=== PATIENT | male | born 1975 | race Caucasian/White ===

== ENCOUNTER 2018-04-29 14:43 | Emergency (ER) | payer MEDICAID ==
[~2018-04-29] VITALS: Ht 180.3 cm; Wt 79.0 kg
[~2018-04-29 14:43] MED LIST: NO HOME MEDS
[2018-04-29 14:46] VITALS: BP 130/86
[2018-04-29] MEDS ORDERED: ketorolac tromethamine 15mg/ml inj. IM ONE (15:50)
[2018-04-29] MEDS ORDERED: NAPR-56 PO (16:08)
== END 2018-04-29 16:20 | disposition home or self-care (01) ==
LOC: ER 14:43
DX: S60.211A Contusion of right wrist, initial encounter (principal); M25.511 Pain in right shoulder; Z90.49 Acquired absence of other specified parts of digestive tract; Z98.890 Other specified postprocedural states; Z88.0 Allergy status to penicillin; W01.0XXA Fall on same level from slipping, tripping and stumbling without subsequent striking against object, initial encounter; Y93.89 Activity, other specified; Y92.89 Other specified places as the place of occurrence of the external cause; Y99.9 Unspecified external cause status
CPT/HCPCS: 29125; 73030; 73110; 96372; 99284; A4565; A6449; J1885

== ENCOUNTER 2018-09-15 07:45 | Emergency (ER) | payer MEDICAID ==
[~2018-09-15] VITALS: Ht 180.3 cm; Wt 90.0 kg
[2018-09-15 08:33] LABS: BASOPHILS % (AUTO) 0.3 % (0-1); EOSINOPHILS # (AUTO) 0.9 X10'3 (0-0.9); EOSINOPHILS % (AUTO) 6.8 % (0-6); HEMATOCRIT 46.5 % (42.0-52.0); HEMOGLOBIN 15.3 g/dl (14.0-17.9); LYMPHOCYTES # (AUTO) 1.5 X10'3 (1.1-4.8); LYMPHOCYTES % (AUTO) 11.1 % (21-51); MEAN CORPUSCULAR HEMOGLOBIN 27.4 PG (27.0-31.0); MEAN CORPUSCULAR HGB CONC 32.9 % (33.0-36.5); MEAN CORPUSCULAR VOLUME 83.2 FL (78-98); MEAN PLATELET VOLUME 9.3 FL (7.4-10.4); MONOCYTES # (AUTO) 0.7 X10'3 (0-0.9); MONOCYTES % (AUTO) 5.2 % (2-12); NEUTROPHILS # (AUTO) 10.5 X10'3 (1.8-7.7); NEUTROPHILS % (AUTO) 76.6 % (42-75); PLATELET COUNT 290 X10'3 (140-440); RED BLOOD COUNT 5.59 X10'6 (4.70-6.10); RED CELL DISTRIBUTION WIDTH 12.9 % (11.5-14.5); WHITE BLOOD COUNT 13.6 X10'3 (4.5-11.0)
[2018-09-15 08:46] LABS: INR 0.9 INR; PARTIAL THROMBOPLASTIN TIME 27 SECONDS (22-32); PROTHROMBIN TIME 9.5 SECONDS (9.0-12.0)
[2018-09-15 08:52] LABS: ALANINE AMINOTRANSFERASE 79 U/L (12-78); ALBUMIN 3.7 G/DL (3.4-5.0); ALBUMIN/GLOBULIN RATIO 0.8 (1.1-1.5); ALKALINE PHOSPHATASE 118 IU/L (46-116); ANION GAP 12 (8-16); ASPARTATE AMINO TRANSFERASE 21 U/L (10-37); BILIRUBIN,TOTAL 0.4 MG/DL (0.1-1.0); BLOOD UREA NITROGEN 16 MG/DL (7-18); BUN/CREATININE RATIO 21.6 (5.4-32.0); CHLORIDE 99 MMOL/L (99-107); CREATININE 0.74 MG/DL (0.60-1.10); GLUCOSE 288 MG/DL (70-104); SODIUM 135 MMOL/L (135-145); TOTAL CARBON DIOXIDE 23.7 MMOL/L (24-32); TOTAL PROTEIN 8.2 G/DL (6.4-8.2); eGFR > 90 ML/MIN
[2018-09-15] MEDS: MESSAGE TO NURSING PO SCH ×3 (09:00→13:08)
[2018-09-15] MEDS ORDERED: iohexol 300mg/ml 100ml inj. ONE (09:03)
[2018-09-15] MEDS ORDERED: normal saline 1000ML IV soln IV ONE (10:10)
[2018-09-15] MEDS ORDERED: GLIP10TA11 PO (10:23)
[2018-09-15] MEDS ORDERED: METF-438 PO (10:23)
[2018-09-15] MEDS ORDERED: OMEP-50 PO (10:23)
[2018-09-15] MEDS ORDERED: NAPR-996 PO (10:23)
[2018-09-15] MEDS ORDERED: ATOR40TA72 PO (10:23)
[2018-09-15] MEDS ORDERED: CHOL10002 PO (10:23)
[2018-09-15] MEDS ORDERED: levoFLOXACIN-Levaquin 750MG/D5 150 ML IV ONE (10:35)
[2018-09-15] MEDS ORDERED: azithromycin/NS 500mg/250ml 250 ML IV ONE (10:35)
[2018-09-15] MEDS ORDERED: BENZ-16 PO (11:14)
[2018-09-15] MEDS ORDERED: LEVO750T21 PO (11:14)
[2018-09-15 13:31] VITALS: BP 120/71
== END 2018-09-15 13:55 | disposition home or self-care (01) ==
LOC: ER 07:45
DX: J18.1 Lobar pneumonia, unspecified organism (principal); E11.9 Type 2 diabetes mellitus without complications; Z87.891 Personal history of nicotine dependence; Z90.49 Acquired absence of other specified parts of digestive tract; Z98.890 Other specified postprocedural states; Z88.0 Allergy status to penicillin; Z79.899 Other long term (current) drug therapy
CPT/HCPCS: 36415; 71045; 71260; 80053; 83605; 84484; 85025; 85610; 85730; 87040; 93005; 96365; 96366; 96368; 99284; J0456; J1956; J7030; Q9967

== ENCOUNTER 2019-04-23 06:14 | Emergency (ER) | payer MEDICAID ==
[~2019-04-23] VITALS: Ht 180.3 cm; Wt 46.0 kg
[~2019-04-23 06:14] MED LIST changes: +ATOR40TA72 PO; +CHOL10002 PO; +GLIP10TA11 PO; +METF-438 PO; +NAPR-996 PO; -NO HOME MEDS; +OMEP-50 PO
[2019-04-23] MEDS ORDERED: normal saline 1000ml 1,000 ML IV ONE (07:10)
[2019-04-23] MEDS ORDERED: metoclopramide 5 mg/ml inj IV ONE (07:10)
[2019-04-23] MEDS ORDERED: mag hydrox/Alum hydrox/simeth 30ml oral suspension PO ONE (07:10)
[2019-04-23 07:23] LABS: BASOPHILS # (AUTO) 0.1 X10'3 (0-0.2); BASOPHILS % (AUTO) 0.9 % (0-1); EOSINOPHILS # (AUTO) 0.1 X10'3 (0-0.9); EOSINOPHILS % (AUTO) 1.2 % (0-6); HEMATOCRIT 43.7 % (42.0-52.0); LYMPHOCYTES # (AUTO) 1.7 X10'3 (1.1-4.8); LYMPHOCYTES % (AUTO) 14.8 % (21-51); MEAN CORPUSCULAR HEMOGLOBIN 28.1 PG (27.0-31.0); MEAN CORPUSCULAR HGB CONC 34.3 g/dL (33.0-36.5); MEAN CORPUSCULAR VOLUME 81.8 FL (78-98); MEAN PLATELET VOLUME 8.7 FL (7.4-10.4); MONOCYTES # (AUTO) 0.7 X10'3 (0-0.9); MONOCYTES % (AUTO) 5.6 % (2-12); NEUTROPHILS % (AUTO) 77.5 % (42-75); PLATELET COUNT 274 X10'3 (140-440); RED BLOOD COUNT 5.34 X10'6 (4.70-6.10); RED CELL DISTRIBUTION WIDTH 13.8 % (11.5-14.5); WHITE BLOOD COUNT 11.6 X10'3 (4.5-11.0)
[2019-04-23 07:38] LABS: ALANINE AMINOTRANSFERASE 74 U/L (12-78); ALBUMIN 3.4 G/DL (3.4-5.0); ALBUMIN/GLOBULIN RATIO 0.7 (1.1-1.5); ALKALINE PHOSPHATASE 77 IU/L (46-116); ANION GAP 9 (8-16); ASPARTATE AMINO TRANSFERASE 35 U/L (10-37); BILIRUBIN,TOTAL 0.4 MG/DL (0.1-1.0); BLOOD UREA NITROGEN 17 MG/DL (7-18); BUN/CREATININE RATIO 19.1 (5.4-32.0); CALCIUM 9.2 MG/DL (8.5-10.1); CHLORIDE 105 MMOL/L (99-107); CREATININE 0.89 MG/DL (0.60-1.10); GLUCOSE 212 MG/DL (70-104); POTASSIUM 3.8 MMOL/L (3.5-5.1); SODIUM 142 MMOL/L (135-145); TOTAL CARBON DIOXIDE 28.5 MMOL/L (24-32); eGFR > 90 ML/MIN
[2019-04-23 07:40] LABS: PARTIAL THROMBOPLASTIN TIME 27 SECONDS (22-32)
[2019-04-23] MEDS ORDERED: iohexol 350MG/ML 100ml bottle IV ONE (07:44)
[2019-04-23] MEDS ORDERED: levoFLOXACIN-Levaquin 750MG/D5 150 ML IV STA (08:57)
[2019-04-23] MEDS ORDERED: LEVO750T21 PO (09:13)
[2019-04-23 10:29] VITALS: BP 109/86
== END 2019-04-23 10:34 | disposition home or self-care (01) ==
LOC: ER 06:15
DX: J18.9 Pneumonia, unspecified organism (principal); R11.2 Nausea with vomiting, unspecified; E11.9 Type 2 diabetes mellitus without complications; F32.9 Major depressive disorder, single episode, unspecified; Z90.49 Acquired absence of other specified parts of digestive tract; Z98.890 Other specified postprocedural states; Z88.0 Allergy status to penicillin; Z79.899 Other long term (current) drug therapy
CPT/HCPCS: 36415; 71046; 71275; 80053; 83880; 84484; 85025; 85610; 85730; 93005; 96361; 96365; 96375; 99284; J1956; J2765; J7030; Q9967

== ENCOUNTER 2019-05-08 10:37 | Emergency (ER) | payer MEDICAID ==
[~2019-05-08] VITALS: Ht 180.3 cm; Wt 86.4 kg
[2019-05-08 11:22] LABS: BASOPHILS # (AUTO) 0.1 X10'3 (0-0.2); BASOPHILS % (AUTO) 1.2 % (0-1); EOSINOPHILS # (AUTO) 0.3 X10'3 (0-0.9); EOSINOPHILS % (AUTO) 3.9 % (0-6); HEMATOCRIT 42.3 % (42.0-52.0); HEMOGLOBIN 14.6 g/dl (14.0-17.9); LYMPHOCYTES # (AUTO) 0.9 X10'3 (1.1-4.8); LYMPHOCYTES % (AUTO) 13.6 % (21-51); MEAN CORPUSCULAR HEMOGLOBIN 28.6 PG (27.0-31.0); MEAN CORPUSCULAR HGB CONC 34.5 g/dL (33.0-36.5); MEAN CORPUSCULAR VOLUME 82.8 FL (78-98); MONOCYTES # (AUTO) 0.5 X10'3 (0-0.9); MONOCYTES % (AUTO) 7.1 % (2-12); NEUTROPHILS # (AUTO) 4.9 X10'3 (1.8-7.7); NEUTROPHILS % (AUTO) 74.2 % (42-75); PLATELET COUNT 239 X10'3 (140-440); RED BLOOD COUNT 5.11 X10'6 (4.70-6.10); RED CELL DISTRIBUTION WIDTH 13.7 % (11.5-14.5); WHITE BLOOD COUNT 6.6 X10'3 (4.5-11.0)
[2019-05-08 11:34] LABS: PARTIAL THROMBOPLASTIN TIME 30 SECONDS (22-32)
[2019-05-08 11:38] LABS: ALANINE AMINOTRANSFERASE 67 U/L (12-78); ALBUMIN 3.4 G/DL (3.4-5.0); ALBUMIN/GLOBULIN RATIO 0.8 (1.1-1.5); ALKALINE PHOSPHATASE 73 IU/L (46-116); ANION GAP 12 (8-16); ASPARTATE AMINO TRANSFERASE 28 U/L (10-37); BILIRUBIN,TOTAL 0.6 MG/DL (0.1-1.0); BLOOD UREA NITROGEN 9 MG/DL (7-18); BUN/CREATININE RATIO 10.7 (5.4-32.0); CALCIUM 8.6 MG/DL (8.5-10.1); CHLORIDE 104 MMOL/L (99-107); CREATININE 0.84 MG/DL (0.60-1.10); GLUCOSE 197 MG/DL (70-104); POTASSIUM 3.9 MMOL/L (3.5-5.1); SODIUM 139 MMOL/L (135-145); TOTAL CARBON DIOXIDE 22.8 MMOL/L (24-32); TOTAL PROTEIN 7.9 G/DL (6.4-8.2); eGFR > 90 ML/MIN
[2019-05-08 11:44] LABS: CLARITY,URINE CLEAR (Clear); COLOR,URINE YELLOW (Yellow); GLUCOSE, URINE >=1000 mg/dl (Neg); KETONES,URINE TRACE mg/dl (Neg); LEUKOCYTE ESTERASE ,URINE NEGATIVE (Neg); NITRITES, URINE NEGATIVE (Neg); OCCULT BLOOD,URINE NEGATIVE (Neg); PROTEIN,URINE 30 mg/dl (Neg); UA COLLECTION TYPE NON-SPECIFIED; UROBILINOGEN,URINE 0.2 E.U/dL (0.2-1.0)
[2019-05-08 11:50] LABS: BACTERIA,URINE FEW /HPF (Neg); HYALINE CASTS 0-3 /LPF (NEGATIVE); MUCUS STRANDS FEW /LPF (Neg); RBC,URINE 0-2 /HPF (0-2); SQUAMOUS EPITHELIAL CELL,UR FEW /LPF (FEW)
[2019-05-08] MEDS ORDERED: morphine 4 MG/ML inj SYRINge IV PRN (12:05)
[2019-05-08] MEDS ORDERED: ondansetron/PF 4mg/2ml inj IV ONE (12:05)
[2019-05-08] MEDS ORDERED: dexamethasone sod phosphate 10mg/ml inj IV STA (12:05)
--- NOTE | 2019-05-08 12:15 | NUR ---
R/o strep swab obtained by MD/RN collected, sent to lab.
--- NOTE | 2019-05-08 12:42 | NUR ---
NOTIFIED DR GUSMAN PT HR 109, LA 2.2. NEW ORDER FOR 2L BOLUS NS.
[2019-05-08] MEDS ORDERED: normal saline 1000ML IV soln IVB ONE (12:45)
[2019-05-08] MEDS ORDERED: NAPR-56 PO (13:33)
[2019-05-08] MEDS ORDERED: DIPH-518 PO (13:33)
[2019-05-08] MEDS ORDERED: AZIT-63 PO (13:33)
[2019-05-08] MEDS ORDERED: azithromycin 250mg tablet PO ONE (13:35)
[2019-05-08 14:15] VITALS: BP 121/70
== END 2019-05-08 14:18 | disposition home or self-care (01) ==
LOC: ER 10:37
DX: J02.0 Streptococcal pharyngitis (principal); E11.9 Type 2 diabetes mellitus without complications; R11.10 Vomiting, unspecified; Z87.891 Personal history of nicotine dependence; Z98.890 Other specified postprocedural states; Z90.49 Acquired absence of other specified parts of digestive tract; Z88.0 Allergy status to penicillin; Z79.899 Other long term (current) drug therapy
CPT/HCPCS: 36415; 71045; 80053; 81001; 83605; 84145; 85025; 85610; 85730; 87040; 87088; 87880; 96374; 96375; 99284; J1100; J2270; J2405; J7030; 96361

== ENCOUNTER 2020-07-29 20:19 | Emergency (ER) | payer MEDICAID ==
[~2020-07-29] VITALS: Ht 180.3 cm; Wt 100.0 kg
[~2020-07-29 20:19] MED LIST changes: +DIPH-518 PO
[2020-07-29 20:21] VITALS: BP 151/95
[2020-07-29] MEDS ORDERED: ibuprofen tablet 400 MG TABLET PO STA (20:26)
== END 2020-07-29 21:24 | disposition home or self-care (01) ==
LOC: ER 20:20
DX: S63.501A Unspecified sprain of right wrist, initial encounter (principal); E11.9 Type 2 diabetes mellitus without complications; F32.9 Major depressive disorder, single episode, unspecified; Z88.0 Allergy status to penicillin; Z79.899 Other long term (current) drug therapy; W18.30XA Fall on same level, unspecified, initial encounter; Y93.89 Activity, other specified; Y92.89 Other specified places as the place of occurrence of the external cause; Y99.8 Other external cause status
CPT/HCPCS: 29125; 73130; 99283; 99284

== ENCOUNTER 2020-12-12 18:52 | Emergency (ER) | payer MEDICAID ==
[~2020-12-12] VITALS: Ht 180.3 cm; Wt 95.5 kg
[2020-12-12] MEDS ORDERED: HYDROcodone/acetaminophen 5mg/325mg tablet PO ONE (20:55)
[2020-12-12] MEDS ORDERED: ketorolac tromethamine 15mg/ml inj. IM ONE (20:55)
[2020-12-12] MEDS ORDERED: IBUP-1984 PO (21:10)
[2020-12-12] MEDS ORDERED: HYDR-3965 PO (21:10)
[2020-12-12 21:19] VITALS: BP 136/86
== END 2020-12-12 21:21 | disposition home or self-care (01) ==
LOC: ER 18:53
DX: M25.532 Pain in left wrist (principal); E11.9 Type 2 diabetes mellitus without complications; F32.9 Major depressive disorder, single episode, unspecified; Z90.49 Acquired absence of other specified parts of digestive tract; Z88.0 Allergy status to penicillin; Z79.899 Other long term (current) drug therapy
CPT/HCPCS: 29260; 73110; 96372; 99283; J1885

== ENCOUNTER 2021-05-31 08:44 | Emergency (ER) | payer MEDICAID ==
[~2021-05-31] VITALS: Ht 180.3 cm; Wt 81.8 kg
[2021-05-31 09:01] VITALS: BP 129/90
[2021-05-31] MEDS ORDERED: ALBU8.5H17 IH (09:28)
== END 2021-05-31 09:43 | disposition home or self-care (01) ==
LOC: ER 08:45
DX: R05 Cough (principal); E11.9 Type 2 diabetes mellitus without complications; F32.9 Major depressive disorder, single episode, unspecified; Z87.01 Personal history of pneumonia (recurrent); Z90.89 Acquired absence of other organs; Z98.890 Other specified postprocedural states; Z88.0 Allergy status to penicillin; Z79.899 Other long term (current) drug therapy
CPT/HCPCS: 99283

== ENCOUNTER 2022-01-09 21:48 | Emergency (ER) | payer MEDICAID ==
[~2022-01-09] VITALS: Ht 180.3 cm; Wt 86.4 kg
[~2022-01-09 21:48] MED LIST changes: +ALBU8.5H17 IH; -OMEP-50 PO; +OMEP20CA16 PO
[2022-01-09] MEDS ORDERED: ketorolac trometh. 30mg/ml inj. IM ONE (23:10)
[2022-01-09] MEDS ORDERED: HYDROcodone/acetaminophen 10/325mg tab PO ONE (23:20)
--- NOTE | 2022-01-10 00:44 | NUR ---
Pt pink, alert, no acute/resp distress. Bed in lowest position, wheels locked, rails up, call ehr in reach.
[2022-01-10] MEDS ORDERED: HYDR-3965 PO (00:51)
--- NOTE | 2022-01-10 01:04 | NUR ---
Pt denies further questions re aci. + crutch training and knee immobiliser as evidenced by return demnstration.
[2022-01-10 01:05] VITALS: BP 118/68
== END 2022-01-10 01:07 | disposition home or self-care (01) ==
LOC: ER 21:49
DX: S80.911A Unspecified superficial injury of right knee, initial encounter (principal); M54.50 Low back pain, unspecified; E11.9 Type 2 diabetes mellitus without complications; Z87.01 Personal history of pneumonia (recurrent); Z88.0 Allergy status to penicillin; Z79.899 Other long term (current) drug therapy; W19.XXXA Unspecified fall, initial encounter; Y93.A1 Activity, exercise machines primarily for cardiorespiratory conditioning; Y92.009 Unspecified place in unspecified non-institutional (private) residence as the place of occurrence of the external cause; Y99.8 Other external cause status
CPT/HCPCS: 72131; 73564; 73610; 96372; 99284; J1885

== ENCOUNTER 2022-07-06 22:04 | Emergency (ER) | payer MEDICAID ==
[~2022-07-06] VITALS: Ht 180.3 cm; Wt 90.9 kg
[2022-07-06 22:26] LABS: BASOPHILS # (AUTO) 0.1 X10'3 (0-0.2); BASOPHILS % (AUTO) 1.2 % (0-1); EOSINOPHILS # (AUTO) 0.1 X10'3 (0-0.9); EOSINOPHILS % (AUTO) 1.7 % (0-6); HEMATOCRIT 41.3 % (42.0-52.0); HEMOGLOBIN 14.3 g/dl (14.0-17.9); LYMPHOCYTES # (AUTO) 2.5 X10'3 (1.1-4.8); LYMPHOCYTES % (AUTO) 34.7 % (21-51); MEAN CORPUSCULAR HEMOGLOBIN 27.7 PG (27.0-31.0); MEAN CORPUSCULAR HGB CONC 34.7 g/dL (33.0-36.5); MEAN CORPUSCULAR VOLUME 79.9 FL (78-98); MEAN PLATELET VOLUME 8.7 FL (7.4-10.4); MONOCYTES # (AUTO) 0.6 X10'3 (0-0.9); MONOCYTES % (AUTO) 8.4 % (2-12); NEUTROPHILS # (AUTO) 3.8 X10'3 (1.8-7.7); PLATELET COUNT 244 X10'3 (140-440); RED BLOOD COUNT 5.17 X10'6 (4.70-6.10); RED CELL DISTRIBUTION WIDTH 13.4 % (11.5-14.5); WHITE BLOOD COUNT 7.1 X10'3 (4.5-11.0)
[2022-07-06 22:43] LABS: ALANINE AMINOTRANSFERASE 52 U/L (12-78); ALBUMIN 3.6 G/DL (3.4-5.0); ALBUMIN/GLOBULIN RATIO 0.9 (1.1-1.5); ALKALINE PHOSPHATASE 85 IU/L (46-116); ANION GAP 9 (8-16); ASPARTATE AMINO TRANSFERASE 24 U/L (10-37); BILIRUBIN,TOTAL 0.4 MG/DL (0.1-1.0); BLOOD UREA NITROGEN 15 MG/DL (7-18); BUN/CREATININE RATIO 18.3 (5.4-32.0); CALCIUM 8.7 MG/DL (8.5-10.1); CHLORIDE 103 MMOL/L (99-107); CREATININE 0.82 MG/DL (0.60-1.10); GLUCOSE 318 MG/DL (70-104); LIPASE 81 U/L (73-393); POTASSIUM 3.4 MMOL/L (3.5-5.1); SODIUM 137 MMOL/L (135-145); TOTAL CARBON DIOXIDE 25.4 MMOL/L (24-32); TOTAL PROTEIN 7.4 G/DL (6.4-8.2); eGFR > 90 ML/MIN
[2022-07-06] MEDS ORDERED: ketorolac trometh. 30mg/ml inj. IV ONE (22:55)
[2022-07-06 23:28] LABS: CLARITY,URINE CLEAR (Clear); GLUCOSE, URINE >=1000 mg/dl (Neg); KETONES,URINE NEGATIVE (Neg); LEUKOCYTE ESTERASE ,URINE NEGATIVE (Neg); NITRITES, URINE NEGATIVE (Neg); OCCULT BLOOD,URINE NEGATIVE (Neg); PROTEIN,URINE NEGATIVE (Neg); UROBILINOGEN,URINE 0.2 E.U/dL (0.2-1.0)
[2022-07-06 23:33] LABS: COLOR,URINE STRAW (Yellow); UA COLLECTION TYPE CLN CATCH MIDSTREAM
[2022-07-06 23:34] LABS: BACTERIA,URINE NONE SEEN /HPF (Neg); RBC,URINE 0-2 /HPF (0-2); SQUAMOUS EPITHELIAL CELL,UR NONE SEEN /LPF (FEW); WBC,URINE 0-4 /HPF (0-4)
[2022-07-07 00:09] VITALS: BP 162/97
== END 2022-07-07 00:13 | disposition home or self-care (01) ==
LOC: ER 22:05
DX: R51.9 Headache, unspecified (principal); E11.9 Type 2 diabetes mellitus without complications; F32.9 Major depressive disorder, single episode, unspecified; I10 Essential (primary) hypertension; Z90.49 Acquired absence of other specified parts of digestive tract; Z88.0 Allergy status to penicillin; Z79.899 Other long term (current) drug therapy; Z79.84 Long term (current) use of oral hypoglycemic drugs
CPT/HCPCS: 36415; 70450; 80053; 81001; 83690; 85025; 96374; 99284; J1885

== ENCOUNTER 2023-06-15 08:51 | Emergency (ER) | payer MEDICAID ==
[~2023-06-15] VITALS: Ht 180.3 cm; Wt 90.0 kg
[2023-06-15 09:08] VITALS: BP 152/100; PULSE 84; RESP 18; O2SAT 97
[2023-06-15 09:41] LABS: BASOPHILS # (AUTO) 0.1 X10'3 (0-0.2); BASOPHILS % (AUTO) 0.9 % (0-1); EOSINOPHILS # (AUTO) 0.1 X10'3 (0-0.9); EOSINOPHILS % (AUTO) 1.5 % (0-6); HEMATOCRIT 43.2 % (42.0-52.0); HEMOGLOBIN 14.8 g/dl (14.0-17.9); LYMPHOCYTES # (AUTO) 2.3 X10'3 (1.1-4.8); LYMPHOCYTES % (AUTO) 32.3 % (21-51); MEAN CORPUSCULAR HEMOGLOBIN 28.5 PG (27.0-31.0); MEAN CORPUSCULAR HGB CONC 34.3 g/dL (33.0-36.5); MEAN CORPUSCULAR VOLUME 83.1 FL (78-98); MEAN PLATELET VOLUME 8.9 FL (7.4-10.4); MONOCYTES # (AUTO) 0.5 X10'3 (0-0.9); MONOCYTES % (AUTO) 7.9 % (2-12); NEUTROPHILS % (AUTO) 57.4 % (42-75); PLATELET COUNT 273 X10'3 (140-440)
[2023-06-15 09:58] LABS: ALANINE AMINOTRANSFERASE 61 U/L (12-78); ALBUMIN 3.6 G/DL (3.4-5.0); ALBUMIN/GLOBULIN RATIO 0.9 (1.1-1.5); ALKALINE PHOSPHATASE 106 IU/L (46-116); ANION GAP 6 (8-16); ASPARTATE AMINO TRANSFERASE 27 U/L (10-37); BILIRUBIN,TOTAL 0.4 MG/DL (0.1-1.0); BLOOD UREA NITROGEN 16 MG/DL (7-18); BUN/CREATININE RATIO 21.6 (10.0-20.0); CALCIUM 8.8 MG/DL (8.5-10.1); CHLORIDE 101 MMOL/L (99-107); CREATININE 0.74 MG/DL (0.60-1.10); GLUCOSE 288 MG/DL (70-104); POTASSIUM 3.9 MMOL/L (3.5-5.1); SODIUM 136 MMOL/L (135-145); TOTAL CARBON DIOXIDE 28.6 MMOL/L (24-32); TOTAL PROTEIN 7.8 G/DL (6.4-8.2); eCRCL 127 ML/MIN; eGFR > 90 ML/MIN
[2023-06-15 10:46] LABS: CLARITY,URINE BLOODY (Clear); COLOR,URINE RED (Yellow)
[2023-06-15 10:49] LABS: RBC,URINE TNTC /HPF (0-2); SQUAMOUS EPITHELIAL CELL,UR FEW /LPF (FEW)
[2023-06-15 10:51] LABS: BACTERIA,URINE NONE SEEN /HPF (Neg); TRANSITIONAL EPI CELLS,URINE FEW /HPF; WBC,URINE 50-100 /HPF (0-4)
[2023-06-15 10:53] LABS: UA COLLECTION TYPE URINAL
[2023-06-15] MEDS ORDERED: DOXY-356 PO (11:37)
[2023-06-15 11:55] VITALS: TEMP 97.6
== END 2023-06-15 11:57 | disposition home or self-care (01) ==
LOC: ER 08:51
DX: N30.81 Other cystitis with hematuria (principal)
CPT/HCPCS: 36415; 80053; 81001; 85025; 87077; 87088; 87186; 99283

== ENCOUNTER 2024-12-22 11:11 | Outpatient (CLI) | payer MEDICAID ==
[~2024-12-22 11:11] MED LIST changes: -GLIP10TA11 PO; +GLIP10TA18 PO; +NAPR-1168 PO; -NAPR-996 PO
== END 2024-12-22 23:59 | disposition home or self-care (01) ==
LOC: RAD 11:11
PROVIDERS: ATTEND Nurse Practitioner
DX: M25.552 Pain in left hip (principal)
CPT/HCPCS: 73700

== ENCOUNTER 2025-05-23 11:12 | Emergency (ER) | payer MEDICAID ==
[~2025-05-23] VITALS: Ht 180.3 cm; Wt 84.6 kg
[2025-05-23 11:17] VITALS: TEMP 97.7
--- NOTE | 2025-05-23 11:50 | RADIOLOGY REPORT ---
EXAM: DI SHOULDER, COMPLETE (MIN 2 VWS) HISTORY: PAIN COMPARISON: None TECHNIQUE: 2 views of the right shoulder were performed. FINDINGS: No acute fracture or dislocation are identified about the right shoulder. No significant loss of subacromial space. There is mild glenohumeral osteoarthritis with mild joint space narrowing inferiorly. There is minimal acromioclavicular hypertrophy. IMPRESSION: Mild degenerative changes of the right shoulder without evidence of fracture.
--- NOTE | 2025-05-23 12:15 | Physician Documentation ---
History of Present Illness ~ Chief Complaint: Shoulder pain Stated Complaint: R SHOULDER INJURY Time Seen by MD: 11:24 Primary Medical Doctor: [facility] HPI Patient is seen today with complaints of acute onset of right shoulder pain after his 350 lb father who is over age 70 stumbled backwards and he tried to catch him and his father fell onto him and he fell through a dog food being crashed of the floor on his right shoulder. Patient states this occurred a couple of days ago and the pain has persisted and not improve. Patient states he does not have any Tylenol at home but has taken naproxen without relief. He admits to significant limited use or range of motion of his right shoulder. He has no other concern or complaint at this time. Tetanus within 5 years?: No Medication Reconciliation Allergies: Coded Allergies: Penicillins (Verified Allergy, Unknown, 05/23/25) Scheduled Atorvastatin Calcium (Atorvastatin Calcium), 1 TAB PO HS, (Reported) Cholecalciferol (Vitamin D3) (Vitamin D3), 1 TAB PO DAILY, (Reported) Diphenhydramine HCl (Benadryl Allergy), 10 ML PO Q6H PRN Glipizide (Glipizide), 1 TAB PO DAILY, (Reported) Metformin HCl (Metformin HCl), 1,000 MG PO BID, (Reported) Omeprazole (Omeprazole), 20 CAP PO DAILY, (Reported) Scheduled PRN Albuterol Sulfate (Proair Hfa), 2 PUFFS IH Q6H PRN for SOB or wheezing Naproxen (Naproxen), 1 TAB PO PRN PRN for pain, (Reported) Past Medical History Past Medical History: Hypertension, Pneumonia, Diabetes, Depression Past Surgical History: appendectomy, orthopedic surgeries Other Past Family History: NONCONTRIBUTORY Alcohol Use: None Drug Use: none Lives with: Spouse Lives In: Home Occupation: employed Review of Systems Constitutional: Denies: chills, fever, weakness Eyes: Denies: pain, blurred vision ENT: Denies: ear pain, nose pain, throat pain, mouth pain Respiratory: Denies: cough, shortness of breath Cardiovascular: Denies: chest pain, palpitations Gastrointestinal: Denies: abdominal pain, nausea, vomiting Genitourinary: Denies: burning, dysuria Male Genitalia: Denies: penile discharge, testicular pain Neurological: Denies: headache, dizziness Musculoskeletal: Denies: pain, swelling Integumentary: Denies: rash, lesions Allergic/Immunologic: Denies: hives, itching Hematologic/Lymphatic: Denies: no symptoms reported Psychiatric: Denies: depression, anxiety Physical Exam Vital Signs: Temperature: 97.7, Source: Temporal, Heart Rate: 77, Respiratory Rate: 16, BP: 154/96, Pulse Oximetry: 98, Weight: 84.600 Oxygen Flow Rate: 0 Physical Exam General: Awake and Alert, no acute distress. HEENT: Conjunctiva pink, Sclera clear, Mucus Membranes moist. Neck: Supple without masses and tenderness. Resp: Unlabored. Lungs clear to auscultation bilaterally. Heart: Regular Rate and rhythm, normal S1 and S2 without murmur, rub or gallop. Musculoskeletal: Patient on exam has significant decreased range of motion of the right shoulder due to pain. Patient has significant tenderness to palpation surrounding the shoulder girdle and posterior shoulder. Patient is neuro vascularly intact distally. Motor function intact distally. Extremities: No cyanosis,clubbing or edema. Skin: Warm and Dry. Progress Results/Orders Results/Orders Vital Signs 05/23/25 11:17 Temp 97.7 Pulse 77 Resp 16 B/P (MAP) 154/96 Pulse Ox 98 O2 Flow Rate 0 EKG/XRAY/CT/US/VASC/MRI Bone/Soft Tissue X-Ray (Ext.) : Additional Comment X-ray of right shoulder interpreted by myself today shows no sign of acute fracture, mild degenerative changes, bones in anatomic alignment. DIAGNOSTIC RADIOLOGY Patient: DUSTIN ALEJANDRO II Deja Medical Record: [id number] [facility] : 1975, Age: 50 Sex: Male Location: ER Patient Status: [facility] ER Service Date/Time: 05/23/25/ 1131 Ordering Physician: DHRUV ANDRADE MD Exam: SHOULDER, COMPLETE (MIN 2 VWS) EXAM: DI SHOULDER, COMPLETE (MIN 2 VWS) HISTORY: PAIN COMPARISON: None TECHNIQUE: 2 views of the right shoulder were performed. FINDINGS: No acute fracture or dislocation are identified about the right shoulder. No significant loss of subacromial space. There is mild glenohumeral osteoarthritis with mild joint space narrowing inferiorly. There is minimal acromioclavicular hypertrophy. IMPRESSION: Mild degenerative changes of the right shoulder without evidence of fracture. Electronically Signed by:SANTOS CRONIN MD Date & Time: 05/23/251146 Dictated by: SANTOS CRONIN MD Dictation date and time: 05/23/251146 Primary Care Provider: NO PRIMARY CARE PROVIDER cc: DHRUV ANDRADE MD ~ Medical Decision Making Findings Patient is seen today with complaints of acute onset of right shoulder pain after his 350 lb father who is over age 70 stumbled backwards and he tried to catch him and his father fell onto him and he fell through a dog food bin, and crashed of the floor on his right shoulder. Patient states this occurred a couple of days ago and the pain has persisted and not improve. Patient states he does not have any Tylenol at home but has taken naproxen without relief. He admits to significant limited use or range of motion of his right shoulder. He has no other concern or complaint at this time. Patient did have x-ray taken of right shoulder that showed no sign of acute fracture and was otherwise unremarkable other than mild degenerative changes of the right shoulder joint. Patient was given Toradol 30 mg IM in the ED today along with Tylenol 975 mg by mouth. Patient will follow up with primary care as soon as possible for referral for MRI of right shoulder and orthopedic evaluation. Return to ED with any worsening, concerning or changing symptoms. Patient was given prescription of ibuprofen and Tylenol sent to patient's pharmacy. Departure Disposition: HOME / SELF CARE / HOMELESS Impression: Primary Impression: Shoulder pain Qualified Codes: M25.511 - Pain in right shoulder Additional Impression: Strain of shoulder Qualified Codes: S46.911A - Strain of unspecified muscle, fascia and tendon at shoulder and upper arm level, right arm, initial encounter Condition: Stable Discharge Instructions: Shoulder Pain, [id number] Additional Instructions: Patient did have x-ray taken of right shoulder that showed no sign of acute fracture and was otherwise unremarkable other than mild degenerative changes of the right shoulder joint. Patient was given Toradol 30 mg IM in the ED today along with Tylenol 975 mg by mouth. Patient will follow up with primary care as soon as possible for referral for MRI of right shoulder and orthopedic evaluation. Return to ED with any worsening, concerning or changing symptoms. Patient was given prescription of ibuprofen and Tylenol sent to patient's pharmacy. Referrals: NO PRIMARY CARE PROVIDER (PCP) Prescriptions Acetaminophen (Tylenol Extra Strength) 500 Mg Tablet 2 TAB PO Q6H PRN PRN for pain or fever for 7 Days, #56 TAB Prov: DRAKE LU 05/23/25 Ibuprofen (Ibuprofen) 800 Mg Tablet 1 TAB PO Q8H for pain for 10 Days, #30 TAB 0 Refills Prov: DRAKE LU 05/23/25 Signature Scribe Signature: No scribe Attestation: No scribe DRAKE LU May 23, 2025 12:15
[2025-05-23] MEDS ORDERED: IBUP-1986 PO (12:37)
[2025-05-23] MEDS ORDERED: ACET-1025 PO (12:37)
[2025-05-23] MEDS: ketorolac trometh 30MG/ML vial 30 MG/ML VIAL IM STA (12:49)
[2025-05-23 13:11] VITALS: BP 154/93; PULSE 77; RESP 18; O2SAT 96
== END 2025-05-23 13:12 | disposition home or self-care (01) ==
LOC: ER 11:14
DX: S46.911A Strain of unspecified muscle, fascia and tendon at shoulder and upper arm level, right arm, initial encounter (principal); I10 Essential (primary) hypertension; E11.9 Type 2 diabetes mellitus without complications; F32.A Depression, unspecified; Z88.0 Allergy status to penicillin; Z90.49 Acquired absence of other specified parts of digestive tract; Z79.899 Other long term (current) drug therapy; Z79.84 Long term (current) use of oral hypoglycemic drugs; W01.0XXA Fall on same level from slipping, tripping and stumbling without subsequent striking against object, initial encounter; Y93.89 Activity, other specified; Y92.89 Other specified places as the place of occurrence of the external cause; Y99.8 Other external cause status
CPT/HCPCS: 73030; 96372; 99284; J1885; A4565